=== PATIENT | female | born 1985 | race Caucasian/White ===

== ENCOUNTER 2016-12-09 18:52 | Emergency (ER) | payer BC ==
[2016-12-09 19:17] VITALS: BP 161/89
--- NOTE | 2016-12-09 20:07 | UC ---
Throat Pain/Nasal Edy HPI - HPI Summary HPI Summary: The patient comes in today for: 1. "I feel like my face is tired." Onset: 6 days. Palliative/provocative: She has been taking Advil 200 mg/pill (2 pills--400 mg) twice day and this has helped. Biting a washcloth last night helped. Quality: "Tired," Region: Bilateral, preauricular area. Severity: 5/10 Time: Constant. Associated symptoms: Fevers: None Sore throat: None. Stress: "I feel like I am stressed out." Chewing: "She can do this OK." Swallowing: OK Previous disease: None. Hx of teeth grinding: She will wake up and feel like she has been clenching her jaw. Jaw alignment: She does not feel that there is any problem. Injury: None. She states that she feels stressed out. She asked for medication for her anxiety/stress. * - History of Current Complaint Chief Complaint: UCGeneralIllness Stated Complaint: LEFT SIDE OF FACE TINGLING-TIGHTNESS IN JAW Time Seen by Provider: 12/09/16 19:32 Hx Obtained From: Patient Hx Last Menstrual Period: 12/08/16 ?: No - Allergies/Home Medications Allergies/Adverse Reactions: Allergies Allergy/AdvReac Type Severity Reaction Status Date / Time Sulfa Drugs Allergy Intermediate Hives Verified 12/09/16 19:18 Home Medications: Home Medications Cholecalciferol TAB* [Vitamin D TAB*] 1,000 unit PO DAILY 12/09/16 [History Confirmed 12/09/16] Multivitamins/Minerals TAB* [Theragran/minerals TAB*] 1 tab PO DAILY 12/09/16 [ History Confirmed 12/09/16] PMH/Surg Hx/FS Hx/Imm Hx Previously Healthy: No Endocrine History Of: Denies: Diabetes, Thyroid Disease, Hyperthyroidism, Hypothyroidism, Dyslipidemia Cardiovascular History Of: Reports: Hypertension - early 20's per patient Denies: Cardiac Disorders, Pacemaker/ICD, Myocardial Infarction, Congestive Heart Failure, Atrial Fibrillation, Deep Vein Thrombosis, Bleeding Disorders Respiratory History Of: Reports: Asthma Denies: COPD, Bronchitis, Pneumonia, Pulmonary Embolism GI/ History Of: Denies: Gastroesophageal Reflux, Ulcer, Gastrointestinal Bleed, Gall Bladder Disease, Kidney Stones, Diverticulitis, Renal Disease, Urosepsis Neurological History Of: Denies: TIA, CVA, Dementia, Seizures, Migraine Psychological History Of: Denies: Anxiety, Depression, Bipolar Disorder, Schizophrenia, Post Traumatic Stress Disorder Cancer History Of: Denies: Lung Cancer, Colorectal Cancer, Breast Cancer, Prostate Cancer, Cervical Cancer Other History Of: Negative For: HIV, Hepatitis B, Hepatitis C, Anticoagulant Therapy - Surgical History Surgical History: Yes Surgery Procedure, Year, and Place: polyps removed from uterus 2012. Tonsillectomy, 1996. Bunion surgery - Family History Known Family History: Negative: Cardiac Disease, Diabetes - Social History Occupation: Employed Full-time Alcohol Use: None Substance Use Type: None Smoking Status (MU): Never Smoked Tobacco Review of Systems Constitutional: Negative Skin: Negative Eyes: Negative ENT: Negative Respiratory: Negative Cardiovascular: Negative Gastrointestinal: Negative Genitourinary: Negative All Other Systems Reviewed And Are Negative: Yes Physical Exam Triage Information Reviewed: Yes Appearance: Well-Appearing, No Pain Distress, Well-Nourished Vital Signs: Initial Vital Signs Temp 98.9 F 12/09/16 19:11 Pulse 59 12/09/16 19:11 Resp 16 12/09/16 19:11 BP 161/89 12/09/16 19:11 Pulse Ox 100 12/09/16 19:11 Vital Signs Reviewed: Yes Eyes: Positive: Conjunctiva Clear. Negative: Discharge ENT: Positive: Hearing grossly normal, Other: - She has full range of motion of her jaw. Palpation of the temporalis muscle and the masseter muscle was not associated with any tenderess. There was no numbness nor swelling. There is no oral lesions such as ulcer, swelling marked erythema or asymmetry. She did complain of some tenderness of the left mu-ism area, but there was no marked tenderness to palpation and no "cord" palpable.. Negative: Pharyngeal erythema , Nasal congestion, Nasal drainage, TM bulging, TM dull, TM red, Tonsillar swelling, Tonsillar exudate Dental: Negative: Gross Decay/Caries @, Dental Fracture @ Neck: Positive: Supple, Nontender, No Lymphadenopathy. Negative: Nuchal Rigidity Respiratory: Positive: Lungs clear, No respiratory distress, No accessory muscle use Cardiovascular: Positive: RRR, No Murmur Abdomen Description: Positive: Nontender, No Organomegaly, Soft, Distended, Guarding Musculoskeletal: Positive: Strength Intact, ROM Intact, No Edema Neurological: Positive: Alert, Muscle Tone Normal Psychological: Positive: Age Appropriate Behavior, Consolable Skin: Negative: rashes, breakdown Throat Pain/Nasal Course/Dx - Differential Dx/Diagnosis Provider Diagnoses: high blood pressure. Teeth clenching/grinding. Anxiety Discharge - Discharge Plan Condition: Stable Disposition: HOME Patient Education Materials: Anxiety (ED) Additional Instructions: Diagnosis: Teeth grinding, jaw clenching, anxiety/stress.
== END 2016-12-09 20:31 | disposition home or self-care (01) ==
LOC: UCCORT 18:52
DX: G47.63 Sleep related bruxism (principal); F41.9 Anxiety disorder, unspecified; R03.0 Elevated blood-pressure reading, without diagnosis of hypertension; Z88.2 Allergy status to sulfonamides
CPT/HCPCS: 99202; G0463